=== PATIENT | female | born 1995 | race Caucasian/White ===

== ENCOUNTER 2023-01-09 13:01 | Emergency (ER) | payer SELFPAY ==
[~2023-01-09] VITALS: Ht 157.5 cm; Wt 58.1 kg
--- NOTE | 2023-01-09 13:29 | NUR ---
Pt c/o possible hemorrhoid (erick-rectal pain), unable to move bowels for 2 days, and last BM was "black" in color. 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
== END 2023-01-09 13:41 | disposition left against medical advice (07) ==
LOC: ER 13:11
DX: K62.89 Other specified diseases of anus and rectum (principal); F90.9 Attention-deficit hyperactivity disorder, unspecified type
CPT/HCPCS: A4663